=== PATIENT | female | born 1955 | race Two or more races ===

== ENCOUNTER → 2024-01-20 | Outpatient (CLI) | payer OTHER | LOC: LAB 14:16 → LAB SHORT 14:16 | DX: N39.0 Urinary tract infection, site not specified (principal) | CPT/HCPCS: 87077; 87086; 87186 ==

== ENCOUNTER → 2024-04-21 | Outpatient (CLI) | payer OTHER | END | disposition home or self-care (01) | LOC: LAB SHORT 12:55 → LAB 12:55 | DX: N39.0 Urinary tract infection, site not specified (principal) | CPT/HCPCS: 87077; 87086; 87186 ==

== ENCOUNTER 2025-01-25 10:35 | Emergency (ER) | payer OTHER ==
[~2025-01-25] VITALS: Ht 172.7 cm; Wt 97.5 kg
[2025-01-25 10:37] VITALS: BP 162/86
[2025-01-25] MEDS ORDERED: FentaNYL Citrate 50 MCG/ML 2 ML Injection IV ONE ×2 (10:50→11:45)
== END 2025-01-25 13:05 ==
LOC: ER 10:35
DX: M25.551 Pain in right hip (principal); W18.30XA Fall on same level, unspecified, initial encounter; Z88.5 Allergy status to narcotic agent; Z79.899 Other long term (current) drug therapy; Z59.89 Other problems related to housing and economic circumstances
CPT/HCPCS: 72170; 73552; 96374; 96376; 99283-25; A9270; J3010

== ENCOUNTER → 2025-03-09 | Outpatient (CLI) | payer OTHER | LOC: LAB SHORT 16:59 → LAB 16:59 | DX: R30.0 Dysuria (principal) | CPT/HCPCS: 87086 ==